=== PATIENT | female | born 1990 | race African-American/Black ===

== ENCOUNTER 2020-12-06 00:37 | Inpatient (IN) ==
[2020-12-06 01:07] LABS: Bacteria,Urine Few /HPF (Few); Bilirubin,Urine Negative (Negative); Blood, Urine Negative (Negative); Glucose,Urine (UA) Negative (Negative); Ketones,Urine Negative (Negative); Nitrite,Urine Negative (Negative); Protein,Urine Negative; Squamous Epithelial Cell,Urine Occasional /HPF (0-10); Urine Appearance CLEAR (Clear); Urine Color Straw (Yellow); Urine Specific Gravity 1.005 (1.001-1.035); Urine Urobilinogen < 2.0 EU/DL (0.2-1.0)
[2020-12-06] MEDS ORDERED: LACTATED RINGERS 1,000 ML IV ONE (01:17)
[2020-12-06] MEDS ORDERED: AZITHROMYCIN INJ 1,000 MG in SODIUM CHLORIDE 0.9% 500 ML IV ONE (01:34)
[2020-12-06] MEDS ORDERED: FLUTICASONE 50 MCG NASAL SPRAY 16 GM BOTTLE BOTH NARES SCH (01:34)
[2020-12-06 01:39] LABS: Barbiturates Screen,Urine Negative (Negative); Benzodiazepines Screen,Urine Negative (Negative); Cannabinoid Screen,Urine Negative (Negative); Opiate Screen,Urine Negative (Negative); Phencyclidine Screen,Urine Negative (Negative)
[2020-12-06] MEDS ORDERED: ALUMINUM/MAGNES/SIMETH MAX STR 30 ML UDCUP PO PRN (02:20)
[2020-12-06] MEDS ORDERED: LACTATED RINGERS 1,000 ML IV PRN (07:55)
[2020-12-06] MEDS ORDERED: CITRIC ACID/SODIUM CITRATE 30 ML UDCUP PO ONE (07:55)
[2020-12-06] MEDS ORDERED: ceFAZolin 2,000 MG/50 ML DUPLEX IV ONE (07:55)
[2020-12-06] MEDS ORDERED: FAMOTIDINE 20 MG/2 ML VIAL IV ONE (07:55)
[2020-12-06] MEDS ORDERED: OXYTOCIN 10 UNIT/ML VIAL IM ONE (07:59)
[2020-12-06] MEDS ORDERED: OXYTOCIN/LR 30 UNIT/1,000 ML BAG IV ONE (07:59)
[2020-12-06 08:22] LABS: Basophils % 0.4 % (0.0-0.8); Eosinophils % 0.6 % (0.00-10.9); Hematocrit 31.9 VOL% (35.7-47.0); Hemoglobin 9.6 GM/DL (12.0-16.0); Immature Granulocytes % 0.2 %; Immature Granulocytes Absolute 0.01 #; Lymphocytes # 2.1 10*3/uL (1.4-4.0); Lymphocytes % 38.9 % (21.3-54.2); Mean Corpuscular HGB Conc 30.1 GM/DL (32-36); Mean Corpuscular Volume 67.4 FL (87-102); Mean Platelet Volume 9.5 FL (9.6-12.0); Monocytes % 7.8 % (1.7-12.7); Neutrophils % 52.1 % (38.7-73.9); Platelet Count 357 T/CUMM (130-400); Red Blood Count 4.73 MC/CUMM (3.8-5.5); Red Cell Distribution Width 16.4 % (9.3-17.3); White Blood Count 5.4 T/CUMM (4-12)
[2020-12-06 08:40] LABS: Albumin 2.6 G/DL (3.4-5.0); Bilirubin,Total 0.9 MG/DL (0.20-1.00); Calcium 9.1 MG/DL (8.5-10.1); Osmolality,Calculated 270.7 MOS/KG (273-304); Potassium 3.9 MMOL/L (3.5-5.1); Total Protein 7.2 G/DL (6.4-8.2)
[2020-12-06 08:42] LABS: Eosinophils 1 % (0-10); Hypochromasia 1+; Lymphocytes 44 % (20-55); Microcytosis 1+; Ovalocytes Slight; Platelet Estimate Adequate; Segmented Neutrophils 51 % (50-85); Total Cells Counted 100
[2020-12-06] MEDS ORDERED: miSOPROStoL 200 MCG TABLET ONE (13:09)
[2020-12-06] MEDS ORDERED: TRANEXAMIC ACID 1,000 MG/10 ML VIAL ONE (13:10)
[2020-12-06] MEDS ORDERED: SODIUM CHLORIDE 0.9% 0 ML IV ONE (13:10)
[2020-12-06] MEDS ORDERED: CARBOPROST TROMETHAMINE 250 MCG/ML AMP IM ONE (13:10)
[2020-12-06] MEDS ORDERED: METHYLERGONOVINE 0.2 MG/1 ML AMP ONE (13:10)
[2020-12-06] MEDS ORDERED: BUPIVACAINE SPINAL 0.75% 2 ML AMP SPINAL ONE (13:11)
[2020-12-06] MEDS ORDERED: ONDANSETRON 4 MG/2 ML VIAL ONE (13:15)
[2020-12-06] MEDS ORDERED: PHENYLEPHRINE 1 MG/10 ML SYRINGE IV ONE (13:52)
[2020-12-06] MEDS ORDERED: ACETAMINOPHEN INJ 1,000 MG/100 ML VIAL IV ONE (13:57)
[2020-12-06] MEDS ORDERED: KETOROLAC 30 MG/1 ML VIAL ONE (13:59)
[2020-12-06] MEDS ORDERED: ePHEDrine 50 MG/ML VIAL ONE (14:05)
[2020-12-06 14:14] LABS: Cord Arterial Blood HCO3 25.8 MMOL/L
[2020-12-06 14:17] LABS: Cord Venous Blood HCO3 22.6 MMOL/L; Cord Venous Blood PCO2 44.8 MMHG; Cord Venous Blood PO2 29.9 MMHG
[2020-12-06 14:24] LABS: Bilirubin,Urine Negative (Negative); Blood, Urine Negative (Negative); Glucose,Urine (UA) Negative (Negative); Ketones,Urine 5 mg/dL (Negative); Nitrite,Urine Negative (Negative); Protein,Urine Negative; RBC,Urine 1 /HPF (0-4); Squamous Epithelial Cell,Urine Occasional /HPF (0-10); Urine Appearance CLEAR (Clear); Urine Color Straw (Yellow); Urine Specific Gravity 1.005 (1.001-1.035); Urine Urobilinogen < 2.0 EU/DL (0.2-1.0)
[2020-12-06] MEDS ORDERED: SIMETHICONE CHEW 80 MG TABLET PO PRN (15:08)
[2020-12-06] MEDS ORDERED: MAGNESIUM HYDROXIDE SUSP 30 ML UDCUP PO PRN (15:08)
[2020-12-06] MEDS ORDERED: OXYTOCIN/LR 20 UNIT/1,000 ML BAG IV ONE (15:08)
[2020-12-06] MEDS ORDERED: ACETAMINOPHEN 325 MG TABLET PO PRN (15:08)
[2020-12-06] MEDS ORDERED: ONDANSETRON 4 MG/2 ML VIAL IV PRN (15:08)
[2020-12-06] MEDS ORDERED: RHO(D) IMMUNE GLOBULIN 300 MCG SYRINGE IM ONE (15:08)
[2020-12-06] MEDS: ALBUTEROL 1.25 MG/3 ML NEB RESP TX SCH ×2 (17:38→20:09)
[2020-12-06] MEDS: KETOROLAC 30 MG/1 ML VIAL IV SCH (19:04)
[2020-12-06] MEDS: DOCUSATE SODIUM 100 MG CAPSULE PO SCH (20:26)
[2020-12-06] MEDS: ACETAMINOPHEN 500 MG TABLET PO SCH (20:26)
[2020-12-06] MEDS: METOCLOPRAMIDE 10 MG TABLET PO SCH (21:46)
[2020-12-06 23:25] LABS: Basophils % 0.2 % (0.0-0.8); Eosinophils % 0.1 % (0.00-10.9); Hematocrit 29.8 VOL% (35.7-47.0); Hemoglobin 8.9 GM/DL (12.0-16.0); Immature Granulocytes % 0.2 %; Immature Granulocytes Absolute 0.02 #; Lymphocytes # 1.7 10*3/uL (1.4-4.0); Lymphocytes % 17.8 % (21.3-54.2); Mean Corpuscular HGB Conc 29.9 GM/DL (32-36); Mean Corpuscular Volume 67.7 FL (87-102); Mean Platelet Volume 9.5 FL (9.6-12.0); Monocytes % 8.4 % (1.7-12.7); Neutrophils % 73.3 % (38.7-73.9); Platelet Count 301 T/CUMM (130-400); Red Cell Distribution Width 16.4 % (9.3-17.3); White Blood Count 9.3 T/CUMM (4-12)
[2020-12-07] MEDS: ALBUTEROL 1.25 MG/3 ML NEB RESP TX SCH ×4 (00:25→20:15)
[2020-12-07] MEDS: ACETAMINOPHEN 500 MG TABLET PO SCH ×2 (01:50→07:45)
[2020-12-07] MEDS: KETOROLAC 30 MG/1 ML VIAL IV SCH ×2 (01:50→07:42)
[2020-12-07] MEDS: LACTATED RINGERS 1,000 ML IV SCH ×2 (01:50→02:53)
[2020-12-07] MEDS: METOCLOPRAMIDE 10 MG TABLET PO SCH ×3 (01:50→17:15)
[2020-12-07 05:42] LABS: Basophils % 0.3 % (0.0-0.8); Eosinophils % 0.3 % (0.00-10.9); Hematocrit 28.4 VOL% (35.7-47.0); Hemoglobin 8.6 GM/DL (12.0-16.0); Immature Granulocytes % 0.5 %; Immature Granulocytes Absolute 0.04 #; Lymphocytes # 1.9 10*3/uL (1.4-4.0); Lymphocytes % 22.5 % (21.3-54.2); Mean Corpuscular HGB Conc 30.3 GM/DL (32-36); Mean Corpuscular Volume 68.1 FL (87-102); Mean Platelet Volume 10.1 FL (9.6-12.0); Monocytes % 8.6 % (1.7-12.7); Neutrophils % 67.8 % (38.7-73.9); Platelet Count 290 T/CUMM (130-400); Red Blood Count 4.17 MC/CUMM (3.8-5.5); Red Cell Distribution Width 16.3 % (9.3-17.3); White Blood Count 8.6 T/CUMM (4-12)
[2020-12-07] MEDS: MULTIVITAMIN (PRENATAL) TABLET PO SCH (09:39)
[2020-12-07] MEDS: DOCUSATE SODIUM 100 MG CAPSULE PO SCH ×2 (09:39→21:28)
[2020-12-07] MEDS: FERROUS SULFATE 325 MG TABLET PO SCH ×2 (09:40→21:28)
[2020-12-07] MEDS: IBUPROFEN 800 MG TABLET PO PRN (16:17)
[2020-12-08] MEDS: ALBUTEROL 1.25 MG/3 ML NEB RESP TX SCH ×2 (00:48→07:45)
[2020-12-08] MEDS: METOCLOPRAMIDE 10 MG TABLET PO SCH ×2 (01:50→09:08)
[2020-12-08] MEDS: IBUPROFEN 800 MG TABLET PO PRN (03:07)
[2020-12-08 08:49] VITALS: BP 106/60
[2020-12-08] MEDS: DOCUSATE SODIUM 100 MG CAPSULE PO SCH (09:08)
[2020-12-08] MEDS: FERROUS SULFATE 325 MG TABLET PO SCH (09:08)
[2020-12-08] MEDS: MULTIVITAMIN (PRENATAL) TABLET PO SCH (09:08)
== END 2020-12-08 14:40 | disposition home or self-care (01) | DRG 540 ==
LOC: N.LDOUT 00:37 → N.LD 00:38 → N.OB 18:43
PROVIDERS: ADMIT Obstetrics & Gynecology; ATTEND Obstetrics & Gynecology
PROC: LDCSECT (ICD-10-PCS; 2020-12-06 13:30)